=== PATIENT | female | born 2000 | race Caucasian/White ===

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

== ENCOUNTER 2022-09-24 07:34 | Outpatient (CLI) | payer BC | END 2022-09-24 07:35 | disposition home or self-care (01) | LOC: ULT 07:34 | PROVIDERS: ATTEND Family Medicine | DX: R10.13 Epigastric pain (principal) | CPT/HCPCS: 76700 ==

== ENCOUNTER 2023-01-02 08:18 | Outpatient (CLI) | payer BC | END 2023-01-02 08:19 | disposition home or self-care (01) | LOC: NM 08:18 | PROVIDERS: ATTEND Family Medicine | DX: R10.84 Generalized abdominal pain (principal) | CPT/HCPCS: 78227; A9537 ==